=== PATIENT | male | born 1990 | race African-American/Black ===

== ENCOUNTER 2022-10-13 16:31 | Emergency (ER) | payer OTHER, SELFPAY ==
[2022-10-13 16:57] VITALS: BP 156/89; PULSE 71; RESP 14; TEMP 36.6; O2SAT 95; BMI 31.6
--- NOTE | 2022-10-13 19:40 | ED_ITS ---
HPI - Abdominal Pain General Chief Complaint: Abdominal Pain Stated Complaint: Stomach pain Time Seen by Provider: 10/13/22 19:39 History of Present Illness HPI narrative: Nury had some abd pain and nausea with one episode of emesis, yesterday started having pain in abdomen with breathing and now having diffuse abd pain, history of GERD/ stomach problems 32-year-old man presenting to the emergency department with concern of abdominal pain. Two days ago he woke in kind of gagged Um and since that time has had low abdominal pain. Describes and now it is just annoying. Does have a history of GERD and reflux takes regular omeprazole 40 mg. If he does not take it is pretty bad day. Has been scoped probably 2 years ago and diagnosed with erosive esophagitis. He is worried about his health given family history and that he has got 2 young children. Just thought he should get checked out particularly after googling. He denies melena or hematochezia. His diet has been limited now over the years as seems to have developed an allergy actually with throat tightness and swelling with fruits and vegetables; apparently had to go to the hospital. No dysuria frequency urgency. No concerns of STI. Denies constipation. Related Data Home Medications Medication Instructions Recorded Confirmed omeprazole 40 mg capsule,delayed 40 mg PO DAILY 10/13/22 10/13/22 release Allergies Allergy/AdvReac Type Severity Reaction Status Date / Time No Known Drug Allergies Allergy Verified 10/13/22 16:56 Review of Systems Status of ROS Reports: 6 or more systems reviewed and unremarkable except as noted in History and below [facility] Social History Smoking Status: Never smoker Do you use any of these nicotine containing products: None Second hand tobacco smoke exposure: No How often do you have a drink containing alcohol: never AUDIT-C Alcohol total score: 0 Non-prescribed substance use: denies use Exam Narrative: Exam Narrative: Pleasant. Tall. Well muscled. Tattoos on the skin. Calm. Carefully casually groomed. Skin is otherwise warm and dry. No rashes. Breathing easily. Lungs appear to be clear. Heart in regular rate and rhythm without murmur rub or gallop. Abdomen is flat soft and mildly tender in the mid suprapubic to left lower abdomen Const: Vital Signs, click to edit/add: Vital Signs - 24 hr 10/13/22 16:57 10/13/22 20:03 Temperature 97.9 F Pulse Rate [Right Pulse Oximeter] 71 62 Respiratory Rate 14 18 Blood Pressure [Ri ght Upper Arm] 156/89 H 142/90 H Pulse Oximetry 95 97 Oxygen Delivery Me thod Room Air Room Air Documenting provider has reviewed patient's vital signs: yes Course Vital Signs Vital signs: Initial Vital Signs Temperature 97.9 F 10/13/22 16:57 Temperature Source Temporal Artery Scan 10/13/22 16:57 Pulse Rate 71 10/13/22 16:57 Respiratory Rate 14 10/13/22 16:57 Blood Pressure 156/89 H 10/13/22 16:57 Blood Pressure Mean 111 H 10/13/22 16:57 Blood Pressure Position Sitting 10/13/22 16:57 Pulse Oximetry 95 10/13/22 16:57 Oxygen Delivery Method Room Air 10/13/22 16:57 Vital Signs Temperature 97.9 F 10/13/22 16:57 Pulse Rate 71 10/13/22 16:57 Respiratory Rate 14 10/13/22 16:57 Blood Pressure 156/89 H 10/13/22 16:57 Pulse Oximetry 95 10/13/22 16:57 Oxygen Delivery Method Room Air 10/13/22 16:57 Temperature 97.9 F 10/13/22 16:57 Pulse Rate 62 10/13/22 20:03 Respiratory Rate 18 10/13/22 20:03 Blood Pressure 142/90 H 10/13/22 20:03 Pulse Oximetry 97 10/13/22 20:03 Oxygen Delivery Method Room Air 10/13/22 20:03 MDM - Abdominal Pain MDM Narrative Medical decision making narrative: Relatively benign abdominal exam. Inconsistent with appendicitis. Possible diverticulitis though this would be unusual in not very severe at this point surely. He does not have genitourinary symptoms consistent with epididymitis or even prostatitis or urinary tract infection. Denies urinary retention or constipation. I wonder if constipation may be more of an issue. I think watchful waiting is acceptable. Is interested generally staying healthy. See patient discharge plan Discharge Plan Discharge Clinical Impression: Abdominal pain, lower Patient Disposition: Home, Self-Care Condition: Stable Additional Instructions: Pleasure talking with you. I would follow up for verification of these dietary allergies perhaps with an document processing specialist. Stay well-hydrated. Do your best to get quality and regular sleep. Try to get a little heart pumping exercise in daily. Follow-up with your doctor if this pain persists for 1-2 weeks. Return or be evaluated for persistent and marked increase in pain, repeated vomiting, associated fever. Prescriptions: No Action omeprazole 40 mg capsule,delayed release(DR/EC) 40 mg PO DAILY Stand Alone Forms: [employer] Info Instructions
[2022-10-13 20:03] VITALS: BP 142/90; PULSE 62; RESP 18; O2SAT 97
== END 2022-10-13 20:11 | disposition home or self-care (01) ==
LOC: ED 20:08
PROVIDERS: Emergency Provider Family Medicine; PCP Nurse Practitioner Family
DX: R10.30 Lower abdominal pain, unspecified (principal)
CPT/HCPCS: 99282; 99283

== ENCOUNTER 2023-04-12 22:10 | Emergency (ER) | payer OTHER, SELFPAY ==
--- NOTE | 2023-04-12 22:16 | ED_ITS ---
HPI - General Adult General Date Seen: 04/12/23 Chief complaint: Extremity Pain/Injury, Lower Stated complaint: poss ruptured R achilles Time Seen by Provider: 04/12/23 22:15 History of Present Illness HPI narrative: This is a 33-year-old male with a history of GERD but otherwise generally healthy presenting to the ER today with an injury to his right lower leg. He suspicious that he probably has a partial Achilles tendon rupture. Was playing basketball tonight and running down the court when he felt an abrupt pop in his right Achilles and in the back of his right calcaneus. Since then he has had a lot of pain in that area. No other injuries. No pain in his medial and lateral malleolus. No pain proximally in his gastrocnemius muscle or in his ravi or fibula. No numbness or tingling in his foot. He was able to get on crutches. He does feel like he is able to plantar flex his foot a little bit but has a lot of pain. Related Data Home Medications Medication Instructions Recorded Confirmed omeprazole 40 mg capsule,delayed 40 mg PO DAILY 10/13/22 04/12/23 release Allergies Allergy/AdvReac Type Severity Reaction Status Date / Time No Known Drug Allergies Allergy Verified 04/12/23 22:20 [facility] Social History Smoking Status: Never smoker Do you use any of these nicotine containing products: None Second hand tobacco smoke exposure: No How often do you have a drink containing alcohol: never AUDIT-C Alcohol total score: 0 Non-prescribed substance use: denies use Exam Narrative: Exam Narrative: Constitutional: Appears well-developed and well-nourished. Robust and heavily muscled. Alert. Conversant. Non toxic. HENT: Head: Atraumatic. Nose: Nose normal. Mouth/Throat: Oral mucosa is clear and moist. No trismus Eyes: Conjunctivae normal. EOM normal. Pupils equal, round, and reactive to light. No scleral icterus. Neck: Normal range of motion. Neck supple. No tracheal deviation present. Cardiovascular: Normal rate, regular rhythm. No gallop. No friction rub. No murmur heard. Symmetric radial artery pulses Pulmonary/Chest: Effort normal. No stridor. No respiratory distress. RUE: Normal range of motion. No tenderness. No deformity LUE: Normal range of motion. No tenderness. No deformity RLE: Normal range of motion and uninjured in his hip, thigh, quadriceps, hamstrings, knee. No tenderness of the proximal tibia or fibula. No tenderness over the medial and lateral malleoli of the ankle. Midfoot and forefoot are nontender. He does have tenderness with palpation over the distal half of his Achilles and at the Achilles insertion on the calcaneus. No definite deformity or defect there. No ecchymosis. No swelling. He has very limited ability to plantar flex his foot, limited by pain but asked him to do so I can see a small amount of downward motion. He does have an intact Bailey test suggesting at least partial function of the Achilles LLE: Normal range of motion. No edema. No tenderness. No deformity Neurological: Alert and oriented to person, place, and time. Normal strength. CN II-VII intact. No sensory deficit. GCS eye subscore is 4. GCS verbal subscore is 5. GCS motor subscore is 6. Normal coordination Skin: Skin is warm and dry. No rash noted. No pallor. Normal capillary refill. Psychiatric: Normal mood. Normal affect. Const: Vital Signs, click to edit/add: Vital Signs - 24 hr 04/12/23 22:20 Temperature 97.7 F Pulse Rate [Pulse Oximeter] 100 Respiratory Rate 16 Blood Pressure [Ri ght Upper Arm] 130/80 Pulse Oximetry 95 Oxygen Delivery Me thod Room Air Course Vital Signs Vital signs: Initial Vital Signs Temperature 97.7 F 04/12/23 22:20 Temperature Source Temporal Artery Scan 04/12/23 22:20 Pulse Rate 100 04/12/23 22:20 Respiratory Rate 16 04/12/23 22:20 Blood Pressure 130/80 04/12/23 22:20 Blood Pressure Mean 96 04/12/23 22:20 Blood Pressure Position Sitting 04/12/23 22:20 Pulse Oximetry 95 04/12/23 22:20 Oxygen Delivery Method Room Air 04/12/23 22:20 Vital Signs Temperature 97.7 F 04/12/23 22:20 Pulse Rate 100 04/12/23 22:20 Respiratory Rate 16 04/12/23 22:20 Blood Pressure 130/80 04/12/23 22:20 Pulse Oximetry 95 04/12/23 22:20 Oxygen Delivery Method Room Air 04/12/23 22:20 Temperature 97.7 F 04/12/23 22:20 Pulse Rate 100 04/12/23 22:20 Respiratory Rate 16 04/12/23 22:20 Blood Pressure 130/80 04/12/23 22:20 Pulse Oximetry 95 04/12/23 22:20 Oxygen Delivery Method Room Air 04/12/23 22:20 Medications Administered Medications: Discontinued Medications Generic Name Dose Route Start Last Admin Trade Name Ryann PRN Reason Stop Dose Admin Ibuprofen 600 mg 04/12/23 22:27 04/12/23 22:47 Ibuprofen 600 Mg Tablet PO 04/12/23 22:28 600 mg ONCE ONE Administration Medical Decision Making MDM Narrative Medical decision making narrative: This is a very pleasant 33-year-old gentleman presenting to the ER today with a basketball related injury to his right Achilles tendon. He felt an injury occurred to the Achilles/a calcaneus this evening when he was running while playing basketball. Clinical exam reveals very significant tenderness around the Achilles without any surrounding erythema to suggest tendinitis, infection, or alternative explanation for his pain. Fortunately x-rays are negative for any avulsion fracture of the calcaneus. Also he does have some function Achilles an intact Bailey test. However I am suspicious for a probable partial below Achilles tendon tear. He is splinted with a short-leg fiberglass splint. He has crutches. He will remain nonweightbearing on that leg. He will follow-up with orthopedics within 1 week for re-evaluation. Will need repeat exam and possibly MRI. Precautions for return to the ER reviewed. For pain control he will try to stick with [id number] pain medications but he is provided with a prescription for Red[place] they can use if needed for breakthrough pain. Reviewed opiate precautions. He verbalizes understanding. Questions answered. Return precautions and splint care reviewed. He already has his own crutches. Imaging Data xr calcaneus: My impression: No acute fracture Discharge Plan Discharge Clinical Impression: Achilles tendon injury Patient Disposition: Home, Self-Care Condition: Stable Instructions: Crutch Instructions (ED), Achilles Tendon Rupture (ED) Additional Instructions: Please call the [facility] at [phone] tomorrow morning to schedule a recheck appointment with the orthopedic clinic. If you choose, you can follow-up with the orthopedic clinics in the [facility] within 1 week. You will need a repeat examination and may need an MRI to further assess your Achilles. Please keep your splint clean and dry. Use ibuprofen or Tylenol if needed for pain. If you have pain uncontrolled by those medications you can use the prescription pain killer. Be careful with Red[place] because it causes drowsiness, constipation, sedation, dizziness, and can be addictive. Prescriptions: No Action omeprazole 40 mg capsule,delayed release(DR/EC) 40 mg PO DAILY Follow Up/Referrals: Lisa Zamarripa, [place], [employer] [Primary Care Provider] - Stand Alone Forms: [employer] [facility] Info Instructions
[2023-04-12 22:20] VITALS: BP 130/80; PULSE 100; RESP 16; TEMP 36.5; O2SAT 95
--- NOTE | 2023-04-12 22:27 | CRLHL7_ITS ---
For Patients: As a result of the Cures Act, medical imaging exams and procedure reports are released immediately into your electronic medical record. You may view this report before your referring provider. If you have questions, please contact your health care provider. INDICATION: Pain. TECHNIQUE: Right calcaneus 2 views. COMPARISON: None. FINDINGS: No acute fracture. Joint alignment is maintained. No significant degenerative changes. Soft tissues are unremarkable. IMPRESSION: No acute osseous abnormality. Dictated by Bonilla Reyes MD @ 04/12/2023 11:48:04 PM (Electronically Signed)
[2023-04-12] MEDS: IBUPROFEN 600 MG TABLET PO (22:47)
== END 2023-04-12 23:39 | disposition home or self-care (01) ==
PROVIDERS: Emergency Provider Emergency Medicine; PCP Nurse Practitioner Family
DX: S86.011A Strain of right Achilles tendon, initial encounter (principal); X58.XXXA Exposure to other specified factors, initial encounter; Y93.67 Activity, basketball
CPT/HCPCS: 29515; 73650; 99283; A9270